=== PATIENT | female | born 1960 | race Caucasian/White ===

== ENCOUNTER → 2016-08-10 | Outpatient (CLI) | payer BC | END | disposition home or self-care (01) | LOC: C.PATHSPEC 15:56 | PROVIDERS: ATTEND Obstetrics & Gynecology | DX: N90.4 Leukoplakia of vulva (principal) ==

== ENCOUNTER 2020-07-14 06:50 | Observation (INO) ==
--- NOTE | 2020-06-22 12:49 | PAT Medication Instructions ---
Medication Instructions Date of Service June 22, 2020 Home Medications lisinopril 20 mg PO QAM metformin 500 mg PO BID multivitamin 1 tab PO QAM timolol 1 drp OPHTHALMIC (EYE) BID triamcinolone acetonide 1 applic TOPICAL DAILY PRN amoxicillin 2,000 mg PO ONCE PRN Continue as directed amoxicillin 2,000 mg PO ONCE PRN (prior to dental procedures) STOP taking 24 hours before surgery triamcinolone acetonide 1 applic TOPICAL DAILY PRN DO NOT take the morning of surgery lisinopril 20 mg PO QAM metformin 500 mg PO BID multivitamin 1 tab PO QAM Take morning of surgery With a small sip of water, OTHERWISE NOTHING TO EAT OR DRINK AFTER MIDNIGHT: timolol 1 drp OPHTHALMIC (EYE) BID Take evening before surgery metformin 500 mg PO BID timolol 1 drp OPHTHALMIC (EYE) BID Other Notes If you have any questions please call us at [phone] or [phone] or [phone] or [phone]
--- NOTE | 2020-06-23 11:19 | Anesthesiology Consultation ---
Date of Service June 23, 2020 Assessment & Plan (1) Encounter for pre-operative examination: - Per assessment on 06/23: Travel screen negative. No known COVID-19 positive contacts or current COVID-19 related symptoms. Patient fully COVID vaccinated. Surgeon arranging preop COVID testing. Awaiting results. - Check BSG AM DOS - S/P Right TKA (02/06/18): SAB x1 attempt at L3-L4 + PNB at [facility] Chart Review Chart Review: Acceptable Risk for Surgery and Patient seen in Pre Admission Testing Teaching & Discussion Pre-Anesthesia Teaching/Discussion Notes: Instructed NPO after midnight before surgery,except medications with 15 cc of water. Medication instructions provided according to the PAT guidelines. History Surgery Operation Date: 07/14/20 08:50 Proposed Procedures p Left Total Knee Arthroplasty - Arnold Rocha MD Height/Weight Height: 5 ft 5 in Weight: 103.9 kg Allergies Allergy/AdvReac Type Severity Reaction Status Date / Time mold Allergy Unknown sob/long Verified 06/19/20 16:20 term bronchitis Medications Home Medications Medication Instructions Recorded Confirmed Last Taken lisinopril 20 mg PO QAM 01/19/18 06/19/20 02/05/18 07:00 metformin 500 mg PO BID 01/19/18 06/19/20 02/05/18 07:00 multivitamin 1 tab PO QAM 01/19/18 06/19/20 02/05/18 07:00 timolol 1 drp OPHTHALMIC (EYE) BID 01/19/18 06/19/20 02/05/18 04:14 triamcinolone acetonide 1 applic TOPICAL DAILY PRN 01/19/18 06/19/20 02/05/18 20:00 amoxicillin 2,000 mg PO ONCE PRN 06/19/20 06/19/20 Unknown Past Medical History Medical History Arthritis of left knee Asthma stable Diabetes mellitus, type 2 NIDDM H/O Slaughter's palsy 2013 Hearing deficit since childhood > wears hearing aids/reads lips Hypertension Obesity Exercise / Class Metabolic Activity II 4-5 Yardwork/Stairs/Walk up hill Past Family History Family History Other No family history of adverse response to anesthesia Past Surgical History Surgical History History of adenoidectomy History of arthroscopy R/L knee History of cholecystectomy History of colonoscopy History of hysterectomy KAMI History of tonsillectomy Status post right knee replacement Right TKA (02/06/18): SAB x1 attempt at L3-L4 + PNB at [facility] Past Anesthesia History No Hx of Anesthesia Complications and No Family Hx of Anesthesia Complications History of PONV No Hx of PONV and No Hx of Motion Sickness Social History Smoking Status: Never smoker Do You Dip or Chew Tobacco: No Hx Alcohol Use: Yes Alcohol type: beer alcohol intake frequency: a few times a week Hx Substance Use: No substance use type: does not use Review of Systems Occasional snoring. No apnea events. Patient denies chest pain, shortness of breath, dyspnea on exertion, fever, chills, cough, wheezing, palpitations. Physical Exam Vital Signs VITALS BP 122/71 P 64 TEMP 98.2 SP02 95%RA RESP 18 PHYSICAL Full neck and c-spine range of motion. Full TMJ range of motion. TMD 3.5 finger breaths Mallampati Score 3 Dentition: intact Lungs: clear throughout to auscultation Cardiac: regular rate and rhythm, no murmurs noted Spine: normal Carotid arteries: negative bruit Extremities: no edema Testing Laboratory Results 06/23/20 12:05 PT 9.9 Seconds (9.0-12.0) 06/23/20 12:05 INR 1.0 (0.9-1.1) 06/23/20 12:05 APTT 27.3 Seconds (21.0-31.0) 06/23/20 12:05 Blood Type O Positive 06/23/20 12:05 Antibody Screen NEGATIVE 06/23/20 12:05 06/23/20 SODIUM 139 POTASSIUM 4.3 CHLORIDE 108 CO2 25 BUN 11 CREATININE 0.66 GLUCOSE 88 TSH 1.250 (WNL) HGBA1C 5.7% Electrocardiogram Date: 06/23/20 SB at 57bpm. unconfirmed report. (need to look in [employer] system for EKG tracings > d/t glitch, tracings not crossing over into [employer] system per [facility]) Chest X-Ray Date: 06/23/20 FINDINGS: PA and lateral chest radiographs are compared to study dated 01/25/2018. The cardiomediastinal silhouette is unremarkable. The lungs and ple ural spaces are clear. There is no pneumothorax. The bony thorax appears intact. Surgical clips are noted in the upper abdomen. IMPRESSION: No active disease in the chest.
[2020-06-23 12:22] LABS: Basophils # (auto) 0.02 K/uL (0-0.2); Basophils % (auto) 0.3 %; Eosinophils % (auto) 1.4 %; Hematocrit (blood only) 42.4 % (37-47); Hemoglobin 15.1 g/dL (12.0-16.0); Immature Granulocytes # (auto) 0.01 K/uL (0.00-0.02); Immature Granulocytes % (auto) 0.1 %; Lymphocytes # (auto) 2.77 K/uL (1.2-3.4); Lymphocytes % (auto) 37.5 %; Mean Corpuscular Hemoglobin 31.6 pg (25-34); Mean Corpuscular Hgb Conc 35.6 g/dL (32-36); Mean Corpuscular Volume 88.7 fL (80-100); Mean Platelet Volume 10.6 fL (7.4-10.4); Monocytes # (auto) 0.27 K/uL (0.11-0.59); Monocytes % (auto) 3.7 %; Neutrophils # (auto) 4.22 K/uL (1.4-6.5); Platelet Count 217 K/uL (130-400); RDW Coefficient of Variation 12.7 % (11.5-14.5); RDW Standard Deviation 40.9 fL (36.4-46.3); Red Blood Count 4.78 M/uL (4.2-5.4); White Blood Count 7.39 K/uL (4.8-10.8)
[2020-06-23 12:33] LABS: Partial Thromboplastin Time 27.3 Seconds (21.0-31.0); Prothrombin Time 9.9 Seconds (9.0-12.0)
--- NOTE | 2020-06-23 12:44 | XRay Report ---
TWO VIEW CHEST CLINICAL HISTORY: Preoperative examination. FINDINGS: PA and lateral chest radiographs are compared to study dated 01/25/2018. The cardiomediasti nal silhouette is unremarkable. The lungs and pleural spaces are clear. There is no pneumothorax. Th e bony thorax appears intact. Surgical clips are noted in the upper abdomen. IMPRESSION: No active disease in the chest. ACT 112: Negative or not required by law. Electronically signed by: Andrei Pope M.D. 06/23/2020 12:43 PM
--- NOTE | 2020-06-24 15:42 | Electrocardiogram Report ---
Test Reason : Blood Pressure : / mmHG Vent. Rate : 057 BPM Atrial Rate : 057 BPM P-R Int : 168 ms QRS Dur : 090 ms QT Int : 424 ms P-R-T Axes : 047 -29 034 degrees QTc Int : 412 ms Sinus bradycardia Otherwise normal ECG When compared with ECG of 25-JAN-2018 13:56, No significant change was found Confirmed by Jonah Robledo ([id number]) on 06/24/2020 3:41:47 PM Referred By: Arnold Rocha Confirmed By:Jonah Robledo
--- NOTE | 2020-07-10 19:44 | History and Physical Report ---
DATE OF ADMISSION: 07/14/2020 CHIEF COMPLAINT: Left knee pain. 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 She has got a long history of bilateral knee pain and discomfort that has gradually gotten worse over time. She has been through extensive conservative treatment in the past. She had her right knee replacement about 2-1/2 years ago and done pretty well from this. She continues to be bothered by left knee pain. It is a constant pain. The more she is up and on it, the more it hurts. 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 She can walk a couple of blocks but that is about it. She now would like to have her left knee replaced. PAST MEDICAL HISTORY: Significant for, 1. Hypertension. 2. Glaucoma. 3. Diabetes. 4. Obesity with a BMI of 38. 5. Arthritis. 6. Hepatitis. PAST SURGICAL HISTORY: Includes, 1. Right knee arthroscopy in 2010. 2. Left knee scope and open lateral release. 3. Hysterectomy. 4. Cholecystectomy. 5. T and A. 6. Right knee replacement done on 02/06/2018. ALLERGIES: MOLD. CURRENT MEDICATIONS: Include, 1. Lisinopril. 2. Timolol eye drops. 3. Metformin. 4. Multivitamin. SOCIAL HISTORY: A 60-year-old female. Lives in [place]. She is . Works as a physical therapist. One drink per week. FAMILY HISTORY: Significant for heart disease, diabetes, leukemia, liver cancer, blood clots. REVIEW OF SYSTEMS: Negative for DVT or PE. She is a diabetic, pretty well controlled. No chest pain or shortness of breath. PHYSICAL EXAMINATION: GENERAL: Shows a pleasant, middle-aged female, looks to be in pretty good health. HEENT: Benign. NECK: Supple, no lymphadenopathy. LUNGS: Clear to auscultation. HEART: Has a regular rate and rhythm. ABDOMEN: Soft, nontender, nondistended. EXTREMITIES: Grossly neurovascularly intact except as follows: Examination of both knees reveals the patient ambulates and does seem to limp a little bit on her left side. She has got moderate soft tissue envelope. She has got bony hypertrophy medially. Range of motion about 5 degrees short of full extension to 120 degrees of flexion. There is no instability. No pain with hip motion. Examination of the right knee reveals a well-healed incision. Range of motion 0-120. Good straight leg raise. No instability. X-RAYS: X-rays of the left knee were reviewed. It shows advanced left knee medial compartment DJD. She has complete loss of her medial joint space. She has got osteophytes in all 3 compartments. X-rays of the right knee reveals a well-positioned and fixed total knee arthroplasty. No signs of problems. 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 She would like to have her left knee replaced. Does have a history of open lateral release in the past. PLAN: We are going to take her to the operating room and do a left total knee replacement. The risks and benefits of this procedure were explained to the patient including but not limited to DVT, PE, , infection, neurological injury, vascular injury, bleeding problem, pain, limited range of motion, stiffness, failure to relieve her symptoms, incomplete relief of symptoms, need for further surgery in the future, fracture, leg length inequality, nerve palsy, etc. The patient understands and desires to proceed. Informed consent was obtained. She is fully aware at her young age, this may need to be revised or redone. She knows to hold her metformin on the morning of surgery. She is going to do outpatient therapy. She is a physical therapist herself.
[~2020-07-14 06:50] MED LIST: ACETAMINOPHEN 500 MG TAB PO SCH; BUPIVACAINE 0.5 % 5 MG/1 ML PF 10ML VIAL ONE; BUPIVACAINE LIPOSOME/PF 266 MG, BUPIVACAINE/EPINEPHRINE 50 ML, SODIUM CHLORIDE 0.9% 30 ... INFIL SCH; FAMOTIDINE 20 MG TAB PO SCH; GABAPENTIN 300 MG CAP PO SCH; LR 500ML BOLUS, THEN 15ML/HR IV SCH; LR 60ML/HR IV SCH; METOCLOPRAMIDE HCL 10 MG TABLET PO SCH; ROPIVACAINE 0.5% 5 MG/ML 30 ML VIAL ONE; Scopolamine 1 MG TDSY TD SCH; TRANEXAMIC ACID 1,000 MG **IV Pre-op IV SCH; ceFAZolin 2000MG 2,000 MG/15 ML SYR IV SCH
--- NOTE | 2020-07-14 06:53 | History & Physical Bridge Note ---
Date of Service July 14, 2020 History & Physical Bridge Note I have examined the patient, reviewed the History & Physical and in the interval since the performance of the History & Physical I have noted the following changes of clinical significance: no changes noted
[2020-07-14] MEDS ORDERED: MIDAZOLAM HCL 1 MG/ML 2ML VIAL ONE (07:35)
[2020-07-14] MEDS ORDERED: fentaNYL citrate 100 MCG/2 ML VIAL ONE (07:35)
[2020-07-14] MEDS ORDERED: SODIUM CHLORIDE 0.9% PF 50 ML VIAL ONE (08:56)
[2020-07-14] MEDS ORDERED: BUPIVACAINE/EPINEPHRINE 0.5% MPF 1:200,000 30 ML VIAL ONE (08:57)
[2020-07-14] MEDS ORDERED: BACITRACIN INJ 50,000 UNIT VIAL ONE (08:57)
[2020-07-14] MEDS ORDERED: BUPIVACAINE 0.25% 30 ML VIAL ONE ×2 (09:00→09:02)
[2020-07-14] MEDS ORDERED: EPINEPHrine INJ 1 MG/ML AMP ONE (09:01)
[2020-07-14] MEDS ORDERED: ONDANSETRON INJ 2 MG/ML 2 ML VIAL IV PRN ×2 (09:31→12:53)
[2020-07-14] MEDS ORDERED: ATROPINE SULFATE 0.1 MG/ML 10ML SYR IV PRN (09:31)
[2020-07-14] MEDS ORDERED: ePHEDrine sulfate 50 MG/ML AMP IV PRN (09:31)
[2020-07-14] MEDS ORDERED: HYDROmorphone INJ 1 MG/ML SYRINGE IV PRN (09:31)
[2020-07-14] MEDS ORDERED: KETOROLAC 30 MG/ML VIAL IV PRN (09:31)
[2020-07-14] MEDS ORDERED: LIDOCAINE HCL 2% 2 ML VIAL/AMP(20MG/ML) INFIL ONE (10:31)
[2020-07-14] MEDS ORDERED: PROPOFOL IV EMULSION 10 MG/ML 20 ML VIAL IV ONE (10:31)
[2020-07-14] MEDS ORDERED: ONDANSETRON INJ 2 MG/ML 2 ML VIAL ONE (10:31)
[2020-07-14] MEDS ORDERED: PHENYLEPHRINE HCL 10 MG/ML VIAL ONE (10:39)
--- NOTE | 2020-07-14 11:27 | Operative Report ---
Post Operative Report Pre & Post Diagnosis Operation Date: 07/14/20 08:50 Pre-Op Diagnosis: Left Knee Degenerative Joint Disease and Pain Post-Op Diagnosis: Left Knee Degenerative Joint Disease and Pain I identified the patient and participated in the time-out.: Yes Procedure Operation Date: 07/14/20 08:50 Actual Procedures p Left Total Knee Arthroplasty(Left) - Arnold Rocha MD Surgeon Arnold Rocha MD Outside Machinist Apprentice HIRAL Solano Estimated Blood Loss 50 Findings Consistent with Post-Op Diagnosis Operative findings were advanced left knee DJD. She had grade 4 [id number] disease the medial femoral condyle medial tibial plateau. Much less severe disease in the patellofemoral and lateral compartments. She had a moderate- sized joint effusion with a varus deformity which to her knee and a 10 degree flexion contracture. Fluids 1300 cc. Specimens Left knee sent for pathology. Drains None. 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 She been through extensive conservative treatment the past. She had a right knee replaced about 2 and half years ago is done well from this. She continued be limited by left knee pain. X-ray showed advanced knee arthritis. She elected proceed with total knee arthroplasty. Description of Procedure Operative implants consist of: 1 Biomet Vanguard size 62.5 left posterior stabilized femoral component. 2. Biomet size 67 tibial tray. 3. 12 mm posterior stabilized polyethylene insert. 4. 28 x 8 all polypatella. The patient was taken to the operating, identified and placed on the operating table supine position but all contractors were properly padded. IV antibiotics tried by anesthesia team. He spinal anesthetic and abductor canal block had been applied in the holding area. Roland catheter was placed in sterile fashion for the left thigh tip was then placed in the left lower extremities and prepped and draped in usual sterile fashion. The left leg was elevated exsanguinated with use of an Esmarch and turns placed at 300 mmHg. An anterior approach left knee was then performed to longitudinal incision centered over the patella. Sharp dissection was carried through subcutaneous tissue down the extensor mechanism. A medial parapatellar arthrotomy incision was made. Some subperiosteal dissection was carried out medially. The fat pad was resected from each patella tendon. The lateral patellofemoral ligament was released. Patella was subluxated laterally and the knee was flexed. The osteophytes were taken off the distal femur. The ACL and PCL were then released from the distal femur the tibia subluxated anteriorly. The external tibial alignment jig was then placed in the interface the tibia and adjusted 14 mm medially. Proximal tibial cut was made remove about 2 mm of bone from the most deficient aspect medial tibial plateau. Some osteophytes taken off medial and posterior medially. The tibia was sized to a size 67. Attention drawn the femur. The distal femur exam with a sharp drill. Intramedullary canal was suction. A left 5 degree valgus cutting guide was placed. The distal femoral cutting block was pinned in place. Distal femoral cut was made to take an additional 3 mm of bone off distal femur. The femur was then sized to a size 62.5. The AP cutting block was pinned parallel to the epicondylar axis which was 5 degrees of external rotation. The anterior cut, anterior chamfer, posterior cut, posterior chamfer cuts were made. The box cutting guide was placed in just slight lateral box cut was made. The knee was flexed. The remnants of medial lateral menisci were excised. The osteophytes were taken off the posterior aspect of the femur. A trial femoral component was placed. The tibial tray was pinned in maximum external rotation and the drill and stem punch were used to create defect in proximal tibia for the tibial tray. Knee was then trialed and the 12 mm insert fit most appropriately. Attention drawn the patella. Patella was cleaned of all soft tissues. Patella thickness measured 23 mm in thickness was cut down to 13. Was a fairly small kneecap and sized to a size 28. The lug holes were drilled for the 20 patella. The lateral osteophyte was removed. Patella button was placed. Knee was taken through range of motion patella tracked nicely with no thumbs test. Attention was then drawn to placing the permanent components. All trial components were removed. Bone plug was placed in the distal femur limit blood loss put a double batch Palacos G cement was mixed. BiomPreCision Dermatologyguard size 62.5 left posterior stabilized femoral component, size 67 tibial tray, a 12 mm posterior stabilized polyethylene insert, and a 28 x 8 all polypatella was then cemented in place. Knee was brought out in full extension total cement hardened. Final cement check was then performed. Pericapsular tissues were injected with total 100 cc of combination of 20 cc of Exparel, 30 cc normal saline, 50 cc of quarter percent Marcaine with epinephrine. Patient did receive 1 g tranexamic acid preoperatively. The tourniquet was then let down for turn time 57 minutes. Hemostasis assured use electrocautery. The wounds once again irrigated. Extensor mechanism closed with combination 1 PDS suture #1 Vicryl suture in [id number] fashion. Extensor mechanism checked and found to be intact with subcutaneous tissue then closed 2 Dexon suture in a buried interrupted fashion skin was closed skin candace. Leg was then cleaned and dried and sterile dressed with Xeroform, 4 x 4's, sterile cast padding, Wali bandage were applied. Patient then transferred to the recovery room in stable condition. Patient tolerated procedure well and there were no complications. Yo Solano, my physician clothing sales assistant, was present for the entire procedure. His assistance was essential and required for appropriate patient positioning, prepping and draping, surgical exposure, performing the technical details of the operation, placement the implants, closure of the wound, and placement of the sterile bandage. I attest to the content of the Intraoperative Record and any orders documented therein. Any exceptions are noted below.
--- NOTE | 2020-07-14 11:49 | XRay Report ---
XR knee LT 1 or 2V routine HISTORY: 60 years-old Female Surgical Post Op [knee total joint arthroplasty COMPARISON: None TECHNIQUE: 2 views of the left knee FINDINGS: Left knee total joint arthroplasty and patella resurfacing. Anterior midline skin candace are noted a long with expected postsurgical soft tissue swelling and deep tissue air. 12 mm ossified density proj ects lateral to the distal femur. There is no acute fracture or malalignment. IMPRESSION: Satisfactory alignment of the left knee total joint arthroplasty. ACT 112: Negative or not required by law. The above report was generated using voice recognition software. It may contain grammatical, syntax o r spelling errors. Electronically signed by: Brandt Lora M.D. 07/14/2020 11:48 AM
--- NOTE | 2020-07-14 12:21 | Anesthesiology Progress Note ---
Date of Service July 14, 2020 Anesthesia Post Procedure Vital Signs Vital Signs: Temp Pulse Pulse Resp BP BP Pulse Ox 07/14/20 12:15 60 12 108/79 95 07/14/20 12:05 61 14 122/81 96 07/14/20 11:55 36.6 C 61 12 106/77 95 07/14/20 11:45 63 15 105/79 95 07/14/20 11:35 70 16 126/73 99 07/14/20 11:25 74 21 118/81 99 07/14/20 11:16 37 C 76 12 111/76 96 07/14/20 07:18 36.5 C 69 20 151/91 H 98 Transfer of Care Handoff Completed per policy Notes Mental Status: alert / awake / arousable Patient Amnestic to Procedure: Yes Nausea / Vomiting: adequately controlled Pain: adequately controlled Airway Patency, RR, SpO2: stable & adequate BP & HR: stable & adequate Hydration State: stable & adequate Anesthetic Complications: no major complications apparent
[2020-07-14] MEDS ORDERED: GLUCOSE 10 TABS/TUBE PO PRN ×2 (12:53→13:15)
[2020-07-14] MEDS ORDERED: diphenhydrAMINE Capsule 25 MG CAP PO PRN (12:53)
[2020-07-14] MEDS ORDERED: GLUCOSE 40% GEL 15 GM TUBE PO PRN ×2 (12:53→13:15)
[2020-07-14] MEDS ORDERED: MAGNESIUM HYDROXIDE SUSP 30 ML UDC PO PRN (12:53)
[2020-07-14] MEDS ORDERED: bisacodyL 10 MG SUPP PR PRN (12:53)
[2020-07-14] MEDS ORDERED: oxyCODONE HCL IR 5 MG TAB (IMMEDIATE RELEASE) PO PRN (12:53)
[2020-07-14] MEDS ORDERED: TRIAMCINOLONE ACET 0.1% CR 15 GM TUBE TOP PRN (12:53)
[2020-07-14] MEDS ORDERED: CARBOHYDRATES FOR HYPOGLYCEMIA PO PRN ×2 (12:53→13:15)
[2020-07-14] MEDS ORDERED: DEXTROSE 50% 50 ML SYRINGE IV PRN ×2 (12:53→13:15)
[2020-07-14] MEDS ORDERED: GLUCAGON FOR INJ 1 MG VIAL SQ PRN (12:53)
[2020-07-14] MEDS ORDERED: NALOXONE HCL 0.4 MG/1 ML VIAL/CARP IV PRN (12:53)
[2020-07-14] MEDS ORDERED: ALUMINUM/MAGNESIUM SUSP 30 ML UDC PO PRN (12:53)
[2020-07-14] MEDS ORDERED: HYDROmorphone INJ 0.5 MG/0.5 ML SYR IV PRN (12:53)
[2020-07-14] MEDS ORDERED: METOCLOPRAMIDE HCL INJ 5 MG/ML 2 ML VIAL IV PRN (12:53)
[2020-07-14] MEDS ORDERED: PHARMACY GLYCEMIC MGMT CONSULT PRN (13:05)
[2020-07-14] MEDS ORDERED: KETOROLAC 30 MG/ML VIAL IV ONE (13:15)
[2020-07-14] MEDS ORDERED: GLUCAGON FOR INJ 1 MG VIAL IM PRN (13:15)
[2020-07-14] MEDS: ACETAMINOPHEN 500 MG TAB PO SCH ×2 (13:56→22:10)
[2020-07-14] MEDS: SODIUM CHLORIDE 0.9% 1000ML 1,000 ML IV SCH ×2 (13:56→22:10)
--- NOTE | 2020-07-14 15:09 | Pharmacy Report ---
Pharmacy Glycemic Short Note 2 - Date of Service July 14, 2020 - Glycemic Short BSG Results (Last 24 hours): 07/14/20 07/14/20 07/14/20 07:12 11:17 12:41 POC Glucose 111 H 105 H 93 OUTPATIENT ANTIDIABETIC REGIMEN: * metformin 500mg BID * A1C: 5.7% 06-23-20 ASSESSMENT: * Post op BSG 93, no steroids in OR * Given only on oral agents, post op BSG ans A1c, will start with novolog scale only. * Patient is ordered a diet PLAN FOR INPATIENT GLYCEMIC CONTROL: * Hold outpatient oral diabetes medications * Basal insulin * none at this time * Bolus insulin * NovoLog per scale ACHS or Q6hrs while NPO * Goal Range: Low 110 mg/dL - High 140 mg/dL * Correction Factor: 25 mg/dL/unit * Nutritional / Prandial insulin per carb ratio of 1 unit per 8 grams CHO consumed
[2020-07-14] MEDS: Scopolamine CHECK PATCH PLACEMENT SCH (16:19)
[2020-07-14] MEDS: ASCORBIC ACID 500 MG TAB PO SCH (17:49)
[2020-07-14] MEDS: ceFAZolin 2000MG 2,000 MG/15 ML SYR IV SCH (17:51)
[2020-07-14] MEDS: KETOROLAC 30 MG/ML VIAL IV SCH (17:51)
[2020-07-14] MEDS ORDERED: TRANEXAMIC ACID / 0.7% NACL 1,000 MG/100 ML BAG IV SCH (18:00)
[2020-07-14] MEDS: INSULIN ASPART 100 UNITS/ML 3 ML PEN SC SCH ×2 (18:03→20:44)
[2020-07-14] MEDS: DOCUSATE SODIUM 100 MG CAP PO SCH (20:37)
[2020-07-14] MEDS: TAPENTADOL HCL ER 50 MG TABCR PO SCH (20:40)
[2020-07-14] MEDS: TIMOLOL MALEATE 0.25% OP SOLN 5 ML BTL OP SCH (20:40)
[2020-07-14] MEDS: ASPIRIN 81 MG ECTAB PO SCH (20:40)
[2020-07-14] MEDS ORDERED: SENNA 8.6 MG TAB PO SCH (21:00)
[2020-07-15] MEDS: KETOROLAC 30 MG/ML VIAL IV SCH ×3 (00:43→11:22)
[2020-07-15] MEDS: Scopolamine CHECK PATCH PLACEMENT SCH ×2 (00:43→09:03)
[2020-07-15] MEDS: ceFAZolin 2000MG 2,000 MG/15 ML SYR IV SCH (01:13)
[2020-07-15] MEDS: SODIUM CHLORIDE 0.9% 1000ML 1,000 ML IV SCH (05:10)
[2020-07-15] MEDS: ACETAMINOPHEN 500 MG TAB PO SCH (05:32)
[2020-07-15 05:56] LABS: Hematocrit (blood only) 37.5 % (37-47); Hemoglobin 12.9 g/dL (12.0-16.0); Mean Corpuscular Hgb Conc 34.4 g/dL (32-36); Mean Corpuscular Volume 90.1 fL (80-100); Mean Platelet Volume 10.4 fL (7.4-10.4); Platelet Count 185 K/uL (130-400); RDW Coefficient of Variation 13.1 % (11.5-14.5); RDW Standard Deviation 42.9 fL (36.4-46.3); Red Blood Count 4.16 M/uL (4.2-5.4); White Blood Count 8.57 K/uL (4.8-10.8)
[2020-07-15 06:22] LABS: BUN Creatinine Ratio 24.1 (10-20); Creatinine Clr Calc Pharmacy 96.2 ml/min; Est GFR (African American) 101.1; Est GFR (Non-African American) 87.2
--- NOTE | 2020-07-15 08:58 | Progress Notes ---
DATE: 07/15/2020 SUBJECTIVE: A 60-year-old white female postop day 1 from a left knee replacement. She is doing pretty well. Pain has been controlled well overnight. No chest pain or shortness of breath. Not feeling dizzy or lightheaded. OBJECTIVE: VITAL SIGNS: Temperature 36.6. Vital signs stable. GENERAL: Shows a pleasant, middle-aged female. She is sitting up in her bedside chair, looks pretty comfortable this morning. EXTREMITIES: Examination of the left leg reveals the dressing to be clean, dry and intact. She can dorsiflex and plantarflex her foot appropriately. She can do a pretty good straight leg raise. Brisk refill with good distal pulse. LABORATORY DATA: Hemoglobin 12.9. Hematocrit 37.5. Electrolytes are stable. ASSESSMENT: A 60-year-old white female postop day 1 from a left knee replacement, doing pretty well. Pain is controlled. She is neurologically intact. PLAN: 1. DVT prophylaxis including thigh-high TEDs, SCDs, and aspirin twice a day. 2. PT/OT. Weight bear as tolerated. Left total knee protocol. 3. Pain control, doing well with current pain regimen. 4. Disposition: Plan to discharge to home with some home health likely later today.
[2020-07-15] MEDS ORDERED: lisinopril 20 MG TAB PO SCH (09:00)
[2020-07-15] MEDS ORDERED: MULTIVITAMIN TAB PO SCH ×2 (09:00)
[2020-07-15] MEDS: ASCORBIC ACID 500 MG TAB PO SCH (09:05)
[2020-07-15] MEDS: ASPIRIN 81 MG ECTAB PO SCH (09:05)
[2020-07-15] MEDS: DOCUSATE SODIUM 100 MG CAP PO SCH (09:05)
[2020-07-15] MEDS: TIMOLOL MALEATE 0.25% OP SOLN 5 ML BTL OP SCH (09:06)
[2020-07-15] MEDS: INSULIN ASPART 100 UNITS/ML 3 ML PEN SC SCH (09:10)
[2020-07-15] MEDS: TAPENTADOL HCL ER 50 MG TABCR PO SCH (09:15)
[2020-07-15] MEDS ORDERED: metFORMIN HCL 500 MG TAB PO SCH (09:15)
[2020-07-15] MEDS ORDERED: INSULIN ASPART 100 UNITS/ML 3 ML PEN SC SCH (11:30)
--- NOTE | 2020-07-17 16:21 | Discharge Summary ---
Date of Service July 17, 2020 Discharge Data Procedures Performed Operation Date: 07/14/20 08:50 Actual Procedures p Left Total Knee Arthroplasty(Left) - Arnold Rocha MD Hospital Course (1) Status post total left knee replacement: This patient is a 60 year old female admitted on 07/14/20 and underwent total knee arthroplasty. She tolerated the procedure well and there were no complications. Transferred to the PACU post op and later to the orthopedic floor for further care. She was given ancef for antibiotic prophylaxis. She was also given CHRISTINE stockings, SCDs, and aspirin for DVT prophylaxis. Hemoglobin, hematocrit, and vital signs were monitored during her hospital stay and remained stable. Did not require any blood transfusions. There were no complications dur ing her hospital stay. By post op day #1 the patient was tolerating a diabetic diet, pain was reasonably controlled with oral pain medicine, and she was participating in physical therapy. On post op day #1 the patient was discharged home and set up with home health care. She was given printed discharge instructions including prescriptions for extra strength tylenol, aspirin, and oxycodone. Continue physical therapy, weight bearing as tolerated. Continue CHRISTINE stockings. Follow up approximately 2 weeks post op or sooner if there are problems or concerns. Coding Level of Care Code None Diagnoses Status post total left knee replacement Z96.652
== END 2020-07-15 12:25 | disposition home health service (06) ==
LOC: ASU 06:50 → 3E 06:50